=== PATIENT | male | born 1990 | race Caucasian/White ===

== ENCOUNTER 2025-02-15 10:26 | Emergency (ER) | payer BC | END 2025-02-15 11:10 | disposition home or self-care (01) | LOC: CC.ED 10:26 | DX: H72.91 Unspecified perforation of tympanic membrane, right ear (principal) | CPT/HCPCS: 99282 ==

== ENCOUNTER 2025-02-19 18:13 | Emergency (ER) | payer BC ==
[2025-02-19] MEDS: methylPREDNISolone Sodium Succinate 40 MG/1 ML SDV IM ONE (19:06)
[2025-02-19] MEDS: methylPREDNISolone Sodium Succinate 125 MG/2 ML SDV IM STA (19:06)
== END 2025-02-19 19:43 | disposition home or self-care (01) ==
LOC: CC.ED 18:13
DX: J40 Bronchitis, not specified as acute or chronic (principal); Z79.899 Other long term (current) drug therapy
CPT/HCPCS: 71046; 94640; 96372; 99283; A9270-GY; J2919

== ENCOUNTER 2025-06-15 10:50 | Emergency (ER) | payer BC, OTHER ==
[2025-06-15] MEDS: Ketorolac 30 MG/ML SDV IM ONE (12:10)
[2025-06-15] MEDS: Take Home: Cyclobenzaprine 10 MG Tab, 4 Tab Pack PO ONE (13:05)
[2025-06-15] MEDS: Take Home: Acetaminophen/HYDROcodone 325-5 MG, 2 Tab Pack PO ONE (13:05)
== END 2025-06-15 13:15 | disposition home or self-care (01) ==
LOC: CC.ED 10:50
DX: S43.401A Unspecified sprain of right shoulder joint, initial encounter (principal); W00.0XXA Fall on same level due to ice and snow, initial encounter
CPT/HCPCS: 73030-RT; 96372; 99283; 99284; A9270-GY; J1885